=== PATIENT | female | born 1970 | race Caucasian/White ===

== ENCOUNTER 2016-12-03 01:26 | Emergency (ER) | payer MEDICAID ==
[2016-12-03 02:15] LABS: BASOPHIL % 0.4 % (0-2); PLATELET COUNT 313 x10^3mcL (130-400); RED CELL DISTRIBUTION WIDTH 14.3 % (11.5-14.5)
[2016-12-03 02:26] LABS: CARBON DIOXIDE 28.3 mmol/L (21-32); CHLORIDE SERUM 104 mmol/L (98-107); CREATININE SERUM 0.9 mg/dL (0.6-1.0); GFR1 > 60 mL/min; GLUCOSE SERUM 112 mg/dL (74-106); POTASSIUM SERUM 3.5 mmol/L (3.5-5.1); SODIUM SERUM 140 mmol/L (136-145)
[2016-12-03 02:30] LABS: ALBUMIN 3.6 g/dL (3.4-5.0); ALKALINE PHOSPHATASE 92 U/L (46-116); ALT/SGPT 32 U/L (14-59); AST/SGOT 24 U/L (15-37); BILIRUBIN TOTAL 0.26 mg/dL (0.20-1.00); LIPASE 447 IU/L (73-393); TOTAL PROTEIN, SERUM 7.7 g/dL (6.4-8.2)
[2016-12-03 02:31] LABS: AMYLASE 116 U/L (25-115)
[2016-12-03 03:20] VITALS: BP 118/73
== END 2016-12-03 03:20 | disposition home or self-care (01) ==
LOC: ED 01:26
PROVIDERS: Emergency Medicine
DX: R10.13 Epigastric pain (principal); R11.2 Nausea with vomiting, unspecified; L80 Vitiligo; Z90.89 Acquired absence of other organs
CPT/HCPCS: 36415

== ENCOUNTER 2017-04-03 19:33 | Emergency (ER) | payer MEDICAID ==
[~2017-04-03] VITALS: Ht 165.1 cm; Wt 74.8 kg
[2017-04-03 19:59] VITALS: Ht 165.1 cm; Wt 74.8 kg
[2017-04-03 23:10] VITALS: BP 108/64
== END 2017-04-03 23:10 | disposition home or self-care (01) ==
LOC: ED 19:33
DX: B34.9 Viral infection, unspecified (principal); H02.739 Vitiligo of unspecified eye, unspecified eyelid and periocular area
CPT/HCPCS: J1885